=== PATIENT | male | born 1960 | race Caucasian/White ===

== ENCOUNTER 2020-11-10 02:57 | Inpatient (IN) | payer BC ==
[~2020-11-10] VITALS: Ht 160 cm; Wt 112.5 kg
[2020-11-10 04:38] LABS: HEMOGLOBIN 14.6 gm/dl (14.0-17.5); RED BLOOD COUNT 4.62 M/UL (4.20-5.50); WHITE BLOOD COUNT 14.2 K/UL (4.5-11.0)
[2020-11-10 04:53] LABS: BUN/CREATININE RATIO 13 (0-10)
[2020-11-10] MEDS ORDERED: XARELTO20 MG PO (10:10)
[2020-11-10] MEDS ORDERED: DEPO-TESTO200 MG/1 M IM (10:10)
[2020-11-10] MEDS ORDERED: SYNTHROID137 MCG PO (10:10)
[2020-11-10] MEDS ORDERED: LASIX40 MG PO (10:10)
[2020-11-10] MEDS ORDERED: ADIPEX-P37.5 M1 PO (10:11)
[2020-11-10] MEDS ORDERED: NEURIVA PO (10:11)
[2020-11-10] MEDS ORDERED: MULTIVITAMIN1 EACH PO (10:11)
[2020-11-10] MEDS ORDERED: ZYRTEC10 MG PO (10:11)
[2020-11-10] MEDS ORDERED: TYLENOL 500 MG500 MG PO (10:12)
[2020-11-11 05:26] LABS: HEMOGLOBIN 14.8 gm/dl (14.0-17.5); RED BLOOD COUNT 4.66 M/UL (4.20-5.50)
[2020-11-11 05:30] LABS: WHITE BLOOD COUNT 32.5 K/UL (4.5-11.0)
[2020-11-11 06:02] LABS: BUN/CREATININE RATIO 10 (0-10)
[2020-11-11 19:00] LABS: HEMOGLOBIN 13.6 gm/dl (14.0-17.5); RED BLOOD COUNT 4.24 M/UL (4.20-5.50); WHITE BLOOD COUNT 27.5 K/UL (4.5-11.0)
[2020-11-11 19:11] LABS: BUN/CREATININE RATIO 16 (0-10)
[2020-11-12 04:39] LABS: HEMOGLOBIN 12.4 gm/dl (14.0-17.5); RED BLOOD COUNT 3.96 M/UL (4.20-5.50); WHITE BLOOD COUNT 25.6 K/UL (4.5-11.0)
[2020-11-12 05:21] LABS: BUN/CREATININE RATIO 16 (0-10)
[2020-11-13 07:05] LABS: HEMOGLOBIN 11.4 gm/dl (14.0-17.5); RED BLOOD COUNT 3.61 M/UL (4.20-5.50)
[2020-11-13 07:08] LABS: WHITE BLOOD COUNT 14.6 K/UL (4.5-11.0)
[2020-11-13 07:24] LABS: BUN/CREATININE RATIO 21 (0-10)
[2020-11-13] MEDS ORDERED: SENNA-TIME S T1 EACH PO (15:08)
[2020-11-13] MEDS ORDERED: OXYCODONE HCL5 MG PO (15:08)
[2020-11-13] MEDS ORDERED: LOPRESSOR 25 MG25 MG PO (15:08)
[2020-11-13] MEDS ORDERED: AMOX TR-K CLV1 EAC4 PO (15:08)
[2020-11-14 07:12] LABS: HEMOGLOBIN 12.3 gm/dl (14.0-17.5); RED BLOOD COUNT 3.89 M/UL (4.20-5.50)
[2020-11-14 07:40] LABS: BUN/CREATININE RATIO 17 (0-10)
== END 2020-11-14 14:08 | disposition home or self-care (01) | DRG 854 ==
LOC: ER1 02:57 → MED SURG 4 09:27 → ZEROF 09:27 → MED SURG 4 14:51
PROVIDERS: Family Medicine; ADMIT Surgery
PROC: 0FT44ZZ Resection of Gallbladder, Percutaneous Endoscopic Approach (ICD-10-PCS; principal; 2020-11-11 10:30)
DX: A41.9 Sepsis, unspecified organism (principal); K80.42 Calculus of bile duct with acute cholecystitis without obstruction; Z68.41 Body mass index [BMI] 40.0-44.9, adult; D68.59 Other primary thrombophilia; K82.A2 Perforation of gallbladder in cholecystitis; K82.A1 Gangrene of gallbladder in cholecystitis; Z20.822 Contact with and (suspected) exposure to COVID-19; E66.9 Obesity, unspecified; M32.9 Systemic lupus erythematosus, unspecified; Z79.01 Long term (current) use of anticoagulants; Z86.718 Personal history of other venous thrombosis and embolism; Z86.711 Personal history of pulmonary embolism; R00.0 Tachycardia, unspecified; I10 Essential (primary) hypertension; E03.9 Hypothyroidism, unspecified
CPT/HCPCS: ECHO; 36415; 76705; 80053; 82550; 82553; 83690; 83874; 84484; 85025; 85027; 85610; 85730; 86850; 86900; 86901; 93005; 93306; 96365; 96375; 99285; J1100; J1170; J1644; J1650; J2001; J2250; J2270; J2370; J2405; J2543; J2704; J2710; J3010; J7030; J7120; J7121; Q9967; U0002

== ENCOUNTER → 2021-10-14 | Outpatient (CLI) | payer OTHER ==
[~2021-10-14] MED LIST: ADIPEX-P37.5 M1 PO; AMOX TR-K CLV1 EAC4 PO; DEPO-TESTO200 MG/1 M IM; LASIX40 MG PO; LOPRESSOR 25 MG25 MG PO; MULTIVITAMIN1 EACH PO; NEURIVA PO; OXYCODONE HCL5 MG PO; SENNA-TIME S T1 EACH PO; SYNTHROID137 MCG PO; TYLENOL 500 MG500 MG PO; XARELTO20 MG PO; ZYRTEC10 MG PO
== END ==
LOC: SLEEP 09:38
DX: G47.33 Obstructive sleep apnea (adult) (pediatric) (principal)
CPT/HCPCS: 95811

== ENCOUNTER → 2022-07-23 | Outpatient (CLI) | payer OTHER ==
[2022-07-23 17:29] LABS: RED BLOOD COUNT 4.79 M/UL (4.20-5.50); WHITE BLOOD COUNT 10.8 K/UL (4.5-11.0)
[2022-07-23 18:02] LABS: BUN/CREATININE RATIO 17 (0-10)
[2022-07-25 12:14] LABS: CREATININE, URINE 180.2 mg/dL (Not Estab.)
== END ==
LOC: LAB 16:24
PROVIDERS: Nurse Practitioner Family
DX: Z00.00 Encounter for general adult medical examination without abnormal findings (principal); R07.9 Chest pain, unspecified; M54.2 Cervicalgia; E11.9 Type 2 diabetes mellitus without complications; I10 Essential (primary) hypertension
CPT/HCPCS: 36415; 71046; 72040; 80053; 80061; 82043; 82550; 82553; 82570; 83036; 83880; 84439; 84443; 84484; 85025; 85379